=== PATIENT | male | born 1965 | race Caucasian/White ===

== ENCOUNTER 2023-09-12 22:29 | Emergency (ER) | payer OTHER, SELFPAY ==
[2023-09-12] MEDS ORDERED: Lidocaine 1% PF 5 ML VIAL ONE (22:41)
[2023-09-12] MEDS ORDERED: Boostrix 0.5 ML (Tdap) VIAL (>/=7 yrs of age) ONE (23:55)
[2023-09-12] MEDS ORDERED: cefTRIAXone (ROCEPHIN) 1 GM VIAL ONE (23:55)
== END 2023-09-13 00:25 | disposition home or self-care (01) ==
LOC: BURERS 22:29
DX: S92.512A Displaced fracture of proximal phalanx of left lesser toe(s), initial encounter for closed fracture (principal); Z23 Encounter for immunization; F17.210 Nicotine dependence, cigarettes, uncomplicated; W26.9XXA Contact with unspecified sharp object(s), initial encounter
CPT/HCPCS: 12001; 90471; 90715; J0696